=== PATIENT | male | born 1950 | race Caucasian/White ===

== ENCOUNTER 2018-04-06 23:35 | Emergency (ER) | payer SELFPAY ==
[~2018-04-06] VITALS: Ht 167.6 cm; Wt 72.7 kg
[2018-04-07] MEDS ORDERED: PERTUSS(ACELL),DIPH,TET VAC/PF 0.5 ML VIAL IM ONE (00:30)
[2018-04-07 01:44] VITALS: BP 143/75
== END 2018-04-07 01:44 | disposition home or self-care (01) ==
LOC: EMS 23:38
DX: S01.511A Laceration without foreign body of lip, initial encounter (principal); F17.210 Nicotine dependence, cigarettes, uncomplicated; W19.XXXA Unspecified fall, initial encounter; Y93.89 Activity, other specified; Y92.488 Other paved roadways as the place of occurrence of the external cause; Y99.8 Other external cause status; F10.129 Alcohol abuse with intoxication, unspecified; Y90.9 Presence of alcohol in blood, level not specified
CPT/HCPCS: 90471; 90715; 99283; 99406